=== PATIENT | male | born 1975 | race Caucasian/White ===

== ENCOUNTER 2017-01-14 19:01 | Emergency (ER) | payer SELFPAY ==
[~2017-01-14] VITALS: Ht 188 cm; Wt 104.3 kg
[2017-01-14 19:55] VITALS: BP 180/106
[2017-01-14] MEDS ORDERED: predniSONE 20 MG TABLET PO ONE (20:30)
[2017-01-14] MEDS ORDERED: MORPHINE SULFATE 10 MG/ML VIAL. IM ONE (20:30)
[2017-01-14] MEDS ORDERED: KETOROLAC TROMETHAMINE 60 MG/2 ML INJ. IM ONE (20:30)
[2017-01-14] MEDS ORDERED: diazePAM 5 MG TABLET PO ONE (20:30)
[2017-01-14] MEDS ORDERED: HYDR-971 PO (20:52)
--- NOTE | 2017-01-14 20:52 | PHYS DOC ---
Past Medical History Past Medical History: Arthritis, Depression, Fibromyalgia Additional Past Medical Histor: chronic back pain Past Surgical History: Other Additional Past Surgical Histo: Thymectomy Alcohol Use: None Drug Use: None Adult General Chief Complaint Chief Complaint: PAIN CONTROL HPI HPI Patient is a 41 year old male with history of chronic back pain, fibromyalgia, and depression who presents today with exacerbation of chronic back pain. Patient states the pain is radiating to the left lower extremity which is not new just worse today after walking [place] the [employer] for long. He states he had not done a lot of walking for a while. Patient states this has exacerbated his pain. Patient denies falling. Denies any loss of bowel bladder function. He states he has tried naproxen and Robaxin and Flexeril today with no relief. Review of Systems Review of Systems Constitutional: Denies fever or chills [] Eyes: Denies change in visual acuity, redness, or eye pain [] HENT: Denies nasal congestion or sore throat [] Musculoskeletal: back pain Integument: Denies rash or skin lesions [] Neurologic: Denies headache, focal weakness or sensory changes [] Endocrine: Denies polyuria or polydipsia [] Current Medications Current Medications Current Medications Medications (Trade) Dose Ordered Sig/Gwyn Start Time Stop Time Status Last Admin Dose Admin Diazepam (Valium) 5 mg 1X ONCE 01/14/17 20:30 01/14/17 20:32 DC Ketorolac Tromethamine (Toradol Im) 60 mg 1X ONCE 01/14/17 20:30 01/14/17 20:32 DC Morphine Sulfate 5 mg 1X ONCE 01/14/17 20:30 01/14/17 20:32 DC Prednisone (Prednisone) 60 mg 1X ONCE 01/14/17 20:30 01/14/17 20:32 DC Allergies Allergies Allergies Coded Allergies Type Severity Reaction Last Updated Verified No Known Drug Allergies 01/14/17 No Physical Exam Physical Exam Constitutional: Well developed, well nourished, no acute distress, non-toxic appearance. [] HENT: Normocephalic, atraumatic, bilateral external ears normal, oropharynx moist, no oral exudates, nose normal. [] Eyes: PERRLA, EOMI, conjunctiva normal, no discharge. [] Neck: Normal range of motion, no tenderness, supple, no stridor. [] Skin: Warm, dry, no erythema, no rash. [] Back: Diffuse paraspinal muscle tenderness to bilateral low lumbar region, pain is worse on the left SI joint, no midline tenderness, no CVA tenderness. [] Extremities: No tenderness, no cyanosis, no clubbing, ROM intact, no edema. [] Neurologic: Alert and oriented X 3, normal motor function, normal sensory function, no focal deficits noted. [] Psychologic: Affect normal, judgement normal, mood normal. [] Current Patient Data Vital Signs Vital Signs Date Time Temp Pulse Resp B/P (MAP) Pulse Ox O2 Delivery O2 Flow Rate FiO2 01/14/17 19:55 98.2 95 18 97 Room Air 98.2 EKG EKG [] Radiology/Procedures Radiology/Procedures [] Course & Med Decision Making Course & Med Decision Making Pertinent Labs and Imaging studies reviewed. (See chart for details) Patient is in the ED with exacerbation of chronic back pain with sciatica to the left. He was instructed to follow-up with his own doctor. He was instructed to continue taking his muscle relaxers as needed. Dragon Disclaimer Dragon Disclaimer This electronic medical record was generated, in whole or in part, using a voice recognition dictation system. Departure Departure Impression: Primary Impression: Back pain Additional Impression: Sciatic leg pain Disposition: HOME, SELF-CARE Condition: STABLE Patient Instructions: Back Pain, Adult, Sciatica Additional Instructions: You were seen for exacerbation of chronic back pain. Continue taking a muscle relaxers and naproxen as needed for pain. Follow-up with your own doctor on Tuesday. Come back to the ED if symptoms worsen. Scripts Hydrocodone/Apap 5-325 (NORCO 5-325 TABLET) 1 Each Tablet 1-2 TAB PO Q4-6HRS, #4 TAB Prov: DRU RODRIGES APRN 01/14/17 Problem Qualifiers Primary Impression: Back pain Back pain location: low back pain Chronicity: chronic Back pain laterality : left Sciatica presence: with sciatica Sciatica laterality: sciatica of left side Qualified Codes: M54.42 - Lumbago with sciatica, left side; G89.29 - Other chronic pain DRU RODRIGES APRN January 14, 2017 20:52
== END 2017-01-14 21:04 | disposition home or self-care (01) ==
LOC: ER 19:01
DX: M54.42 Lumbago with sciatica, left side (principal); G89.29 Other chronic pain; M79.662 Pain in left lower leg; M79.7 Fibromyalgia; M19.90 Unspecified osteoarthritis, unspecified site
CPT/HCPCS: 96372; 99284; J1885; J2270; J7512